=== PATIENT | female | born 1930 | race Caucasian/White ===

== ENCOUNTER 2017-02-17 14:59 | Inpatient (IN) | payer MEDICARE, OTHER ==
[~2017-02-17 14:59] MED LIST: EPINEPHrine 1 MG/10 ML Abboject SYRINGE ONE; Sodium Bicarb 50 MEQ/50 ML Abboject 8.4% SYRINGE ONE; Sodium Bicarbonate 2.4 MEQ/5 ML ONE
[2017-02-17 15:30] LABS: Oxyhemoglobin 97.6 % (94.0-97.0); Sodium 135 mmol/L (135-148)
[2017-02-17 15:31] LABS: Mechanical Tidal Volume 450 ml; Mode SIMV/PSV; PIP 15 cmH2O; Pressure Support 10 cmH2O; Spontaneous Rate 3 min; Vent YES
[2017-02-17] MEDS ORDERED: Aspirin 300 MG Suppository ONE (15:32)
[2017-02-17 16:23] LABS: Bilirubin Negative (Negative); Blood, Urine Negative (Negative); Glucose, Urine (Dipstick) Negative (Negative); Ketone, Urine Negative (Negative); Nitrite Negative (Negative); Protein, Urine (Dipstick) Negative (Neg-Trace); Urobilinogen 0.2 mg/dL (0.2-1.0)
[2017-02-17] MEDS ORDERED: Sedation Protocol FS ONE (17:04)
[2017-02-17] MEDS ORDERED: Lorazepam 2 MG/ML VIAL SLOW IVP PRN ×2 (17:04→17:07)
[2017-02-17] MEDS ORDERED: DISCONTINUE PREVIOUS NARCOTIC PAIN MEDICATIONS AND BENZODIAZEPINES FS SCH ×2 (17:04→17:07)
[2017-02-17] MEDS ORDERED: Fentanyl 20 MCG/ML 250 ML IVPB SCH ×2 (17:04→17:07)
[2017-02-17] MEDS ORDERED: Propofol 1,000 MG/100 ML VIAL IV PRN (17:07)
[2017-02-17] MEDS ORDERED: Morphine 4 MG/ML VIAL SLOW IVP PRN (17:08)
[2017-02-17] MEDS ORDERED: FLU VACC TS2017-18 (>65YR) 0.5 ML SYRINGE IM ONE (17:15)
--- NOTE | 2017-02-17 17:45 | RAD ---
ABDOMEN ONE VIEW 02/17/17 HISTORY: Nasogastric tube placement. FINDINGS: The visualized bowel gas pattern is nonspecific. Nasogastric tube descends to the stomach. There are degenerative changes of the hips and lumbar spine. Calcifications apparent within the arterial struct ures. IMPRESSION: Nasogastric tube is in good radiographic position. POS: [facility]
[2017-02-17] MEDS: Sodium Chloride 0.9% 1,000 ML IV SCH (17:48)
[2017-02-17 17:56] LABS: #Lymphocytes 0.8 thou/uL (1.20-3.40); #Monocytes 0.4 thou/uL (0.11-0.59); %Basophils 0.3 % (0.0-1.0); %Eosinophils 0.5 % (0.0-10.0); %Monocytes 5.2 % (0.0-10.0); Hematocrit 30.4 % (36.0-47.0); Mean Platelet Volume 6.7 fL (7.4-10.4); Red Blood Cell (RBC) Count 3.33 mill/uL (4.20-5.40); White Blood Cell (WBC) Count 8.3 thou/uL (4.8-10.8)
[2017-02-17 18:19] LABS: Anion Gap 15 mmol/L (10-20); BUN (Urea Nitrogen) 16 mg/dL (9.8-20.1); Calc. Creatinine Clearance 40 mL/min (70-130); Calcium 8.9 mg/dL (7.8-10.44); Carbon Dioxide 29 mmol/L (23-31); Chloride 94 mmol/L (98-107); Estimated GFR-MDRD 74
[2017-02-17 18:25] LABS: Troponin I 0.014 ng/mL (< 0.028)
[2017-02-17] MEDS: Propofol 1,000 MG/100 ML VIAL IV PRN (18:41)
[2017-02-17] MEDS: levETIRAcetam In NaCl (Iso-Os) 1,000 MG in Premix Bag 1 BAG IVPB SCH ×2 (19:59)
--- NOTE | 2017-02-17 21:30 | HP ---
DATE OF ADMISSION: 02/17/2017 ATTENDING: Cheryl Ramirez D.O. RESIDENT: Wesley Escobar M.D. Dr. Escobar's history and physical reviewed and case discussed. Pertinent portions of the history and physical repeated by myself. I agree with the assessment and plan with the following addendum: Ms. Lynne is an 87-year-old female with a past medical history of coronary artery disease, status post CABG; hypertension; hypothyroidism; hyperlipidemia; GERD; type 2 diabetes; and senile dem entia with physical deconditioning. She was found to be having [facility] and was sent to the ER in [place]. At the ER in [place], the patient's daughter revoked th at her DNR and she was intubated and transferred here. She no longer has seizure activity. She has been loaded with Keppra. She is stable on the ventilator at this time. Dr. Rodriguez has been consult ed. He has not been able to determine the etiology of her seizure activity. She was noted to be hyp othermic in the ER with a temperature of 93. Her current temperature is 97.8 after being externally warm to the Jarrell Hugger. Her CT scan of her head was not performed given her initially unstable stat us. We will send for CT of the head with concern for a stroke. In addition, there is concern for po tential hypoxia leading to seizure activity versus an underlying metabolic disorder. Lab is currentl y pending including CBC, CMP, and cardiac enzymes. In the meantime, she has been admitted to the ICU for close observation.
[2017-02-17 21:35] LABS: Troponin I 0.012 ng/mL (< 0.028)
[2017-02-17] MEDS ORDERED: EPINEPHrine 1 MG/10 ML Abboject SYRINGE ONE (22:10)
[2017-02-17] MEDS ORDERED: Atropine Sulfate 1 mg/10 ml Syringe ONE (22:10)
[2017-02-17] MEDS ORDERED: Sodium Bicarb 50 MEQ/50 ML Abboject 8.4% SYRINGE ONE (22:10)
--- NOTE | 2017-02-17 23:52 | HP-2 ---
DATE OF ADMISSION: 02/17/2017 CODE STATUS: DNR. PRIMARY CARE PHYSICIAN: Denice worthington. ATTENDING: Cheryl Ramirez D.O. RESIDENT: Wesley Escobar M.D., PGY-1 CHIEF COMPLAINT: Altered mental status and seizure. HISTORY OF PRESENT ILLNESS: This is an 87-year-old female that was transferred here from [place] intubated and sedated. Per their records, she came in with altered mental status from [facility]. There, she started to have some seizure activity, at this time they sedated her and at marylu t time, she did not maintain an airway and remains intubated at this time, unable to obtain anymore H PI the patient is sedated. In the ER, she was given Versed, Dilantin, rocuronium, and fentanyl. PAST MEDICAL HISTORY: This is obtained from previous HPI. Atrial fibrillation, diabetes, GERD, hype rtension, hyperlipidemia, coronary artery disease with CABG, hypothyroid, senile dementia, diabetes m ellitus type 2, history of TIA. PAST SURGICAL HISTORY: CABG, perforated ulcer and hysterectomy. ALLERGIES: LACTOSE intolerant. MEDICATIONS: Again obtained from previous HPI from earlier this year, Eliquis 2.5 mg p.o. b.i.d., vi tamin C 500 mg p.o. daily, Lipitor 10 mg p.o. daily, Coreg 25 mg p.o. b.i.d., Vitamin D3 1000 units p .o. daily, digoxin 0.125 mg daily, Lasix 20 mg p.o. b.i.d., Imdur 30 mg p.o. daily, lisinopril 5 mg p .o. daily, multivitamin 1 tablet p.o. daily, nitroglycerin 0.4 mg sublingual p.r.n. for chest pain, o meprazole 40 mg p.o. daily, valsartan 320 mg p.o. daily, Catapres 0.1 mg p.o. daily, Mucinex 700 mg t wice daily, metformin 500 mg p.o. b.i.d., and risperidone 0.5 mg at bedtime. FAMILY HISTORY: Insignificant. SOCIAL HISTORY: No smoking, no alcohol, no drugs. REVIEW OF SYSTEMS: Unable to obtain as the patient is currently sedated and intubated. PHYSICAL EXAMINATION: VITAL SIGNS: Blood pressure is 180/76, pulse 66, respirations 18, temperature 93.7, pulse ox 100% on assist-control ventilator. Current weight is 46 kilograms. GENERAL: She is not alert, not oriented, not appropriately interactive. HEENT: Her eyes are pinpoint and fixed. ENT: Oropharynx has a little dry. NECK: Supple, no lymphadenopathy, no thyromegaly. CARDIOVASCULAR: Regular rate and rhythm. No murmur, no gallops. Radial pulses, pedal pulses unable to palpate at this time. RESPIRATORY: She has assist-control intubated breathing rate and effort. Lungs clear to auscultatio n bilaterally. SKIN: Very cool to touch. Again, she is pale. ABDOMEN: Soft. Bowel sounds heard in all 4 quadrants. MUSCULOSKELETAL: Structure within normal limits. NEUROLOGIC: Unable to assess for neurologic deficits as she is intubated and sedated. PSYCHIATRIC: Appropriate. LABORATORY DATA: White blood cell count 6.52, hemoglobin 9.7, MCV 87.8, hematocrit 28.7, platelets 2 33. Sodium 138, potassium 4.3, chloride 99, carbon dioxide 28, BUN is 15.5, creatinine is 0.7, gluco se is 98, calcium is 6.54, total protein is 7.2, albumin is 3.8, total bilirubin is 0.8, alkaline amanda sphatase is 59, AST is 19, ALT is 12. ABG: pH is 7.57, CO2 of 29.4, O2 is 138.1, bicarbonate 26.4. Drug screen is negative. CK is 44, CK-MB is 13. Troponin is 0.014. UA is negative. IMAGING: CT head at outside hospital was negative. She also got an abdomen x-ray which shows nasoga stric tube is in good radiographic position. ASSESSMENT AND PLAN: 1. Altered mental status with seizure. She is intubated. We will wean off sedation and assess abil ity to extubate tomorrow. We will continue Keppra b.i.d. We will get an MRI of the head. 2. Possible cerebrovascular accident. We will get an MRI of the head and assess from there, current ly sedated and intubated. 3. Chronic anemia. We will follow with a daily CBC. 4. Indeterminate tropes. We will trend cardiac profile x3. 5. History of hypertension. We will do her med rec and may restart home medications. 6. Hyperlipidemia. We will do her med rec and start home medications. 7. Gastroesophageal reflux disease. We will put her on omeprazole for prophylaxis. 8. History of atrial fibrillation. She will be on telemetry monitoring and continue to monitor and treat as needed. 9. Hypothyroid. We will need to med rec and get her hypothyroid dose and treat as needed. The big thing also with her on the plan is she was a DNR, but daughter wanted to intubate her as she thought maybe she just only had a UTI and she said she wanted to wait and have the son come as well a nd come and talk and probably discuss extubating and discuss goals of care tomorrow, so for tonight, we will keep her on intubation. We will keep her sedated for now and likely try sedation, wean off s edation and try to extubate tomorrow when family is present.
[2017-02-18 00:22] LABS: Troponin I 0.022 ng/mL (< 0.028)
[2017-02-18] MEDS: Propofol 1,000 MG/100 ML VIAL IV PRN (03:15)
[2017-02-18 04:42] LABS: #Lymphocytes 0.8 thou/uL (1.20-3.40); #Monocytes 0.9 thou/uL (0.11-0.59); #Neutrophils 5.5 thou/uL (1.40-6.50); %Basophils 0.2 % (0.0-1.0); %Eosinophils 0.4 % (0.0-10.0); %Lymphocytes 11.1 % (21.0-51.0); %Monocytes 12.3 % (0.0-10.0); Hematocrit 27.1 % (36.0-47.0); Mean Platelet Volume 7.1 fL (7.4-10.4); White Blood Cell (WBC) Count 7.2 thou/uL (4.8-10.8)
[2017-02-18 04:48] LABS: Anion Gap 13 mmol/L (10-20); BUN (Urea Nitrogen) 13 mg/dL (9.8-20.1); Calc. Creatinine Clearance 41 mL/min (70-130); Calcium 7.9 mg/dL (7.8-10.44); Carbon Dioxide 28 mmol/L (23-31); Chloride 96 mmol/L (98-107); Estimated GFR-MDRD 79
[2017-02-18] MEDS: Sodium Chloride 0.9% 1,000 ML IV SCH ×2 (05:10→16:32)
[2017-02-18] MEDS ORDERED: Potassium Chloride 40 MEQ in Sodium Chloride 0.9% 250 ML 250 ML IVPB SCH (05:30)
[2017-02-18] MEDS: levETIRAcetam In NaCl (Iso-Os) 1,000 MG in Premix Bag 1 BAG IVPB SCH ×4 (08:19→19:54)
--- NOTE | 2017-02-18 10:21 | CON ---
DATE OF CONSULTATION: 02/18/2017 SERVICE: Pulmonary Medicine. REASON FOR CONSULTATION: Respiratory failure. HISTORY OF PRESENT ILLNESS: The patient is an 87-year-old white female. She had some altered mentat ion with possible neurologic impairment. Either way, she ended up having a seizure. This thing did not stop. She was intubated on arriving in the emergency department. I cannot get any additional el ements of the history from her. It is my understanding that prior to this event, she may have been i n her usual state of health. PAST MEDICAL HISTORY: 1. Atrial fibrillation. 2. Type 2 diabetes mellitus. 3. Hypertension. 4. Dyslipidemia. 5. Gastroesophageal reflux disease. 6. Coronary artery disease. 7. Hypothyroidism. 8. Dementia, advanced. 9. Type 2 diabetes mellitus. 10. History of stroke. PAST SURGICAL HISTORY: 1. Coronary artery bypass graft. 2. Hysterectomy. ALLERGIES: LACTOSE. MEDICATIONS: List of her inpatient medications was reviewed. Multiple updates were made at this critical access hospital. FAMILY HISTORY: Noncontributory. SOCIAL HISTORY: Negative for tobacco, alcohol or illicit drugs. REVIEW OF SYSTEMS: Cannot be obtained as the patient is currently intubated and sedated. PHYSICAL EXAMINATION: VITAL SIGNS: Afebrile, pulse 62, blood pressure 154/91, respirations 64, saturation 99% on 21% FIO2 and PEEP of 5. HEENT: Normocephalic, atraumatic. Sclerae are white, conjunctivae pink. Oral mucosa is moist witho ut lesions. Endotracheal tube is in good position. LUNGS: Excellent air entry. There is no prolonged expiratory phase, wheezing, rhonchi or crackles. HEART: Normal rate, regular. ABDOMEN: Soft, nontender, and nondistended. Bowel sounds positive. MUSCULOSKELETAL: No cyanosis or clubbing. No pitting in the bilateral lower extremities. NEUROLOGIC: Grossly nonfocal. She has been witnessed to move all 4 extremities. LABORATORY DATA: WBC 7.2, hemoglobin 9.3, platelets 241,000. A pH 7.57, pCO2 of 29, pO2 138. Potas sium 2.7, phosphorus is normal at 3.0. Magnesium is below the assay limit of normal. Cardiac enzyme s are negative x2. Urinalysis is unremarkable. Urine culture is growing some gram negative rods. IMAGIN. Abdominal x-ray demonstrates NG tube in good position. 2. CT of the head demonstrates no acute intracranial process. ASSESSMENT: 1. Seizure, possible. 2. Metabolic encephalopathy. 3. Cerebrovascular accident, possible. 4. Dementia, advanced. PLAN: We will give the patient a spontaneous breathing trial after a long sedation holiday. If she meets criteria, extubation will be considered. Supportive care will be continued. She is going down for an MRI at some point today. This will help us to definitively understand whether or not she had an acute neurologic injury. Pulmonary or Critical Care will continue to follow up for the time anu swan, but if her mentation allows, she should tolerate extubation quite well. CRITICAL CARE TIME: Thirty minutes.
--- NOTE | 2017-02-18 10:40 | PDOC.FM ---
- Subjective Subjective: Patient sedated on Propofol this morning. Daughter and son are en route today and we will discuss prognosis and goals of care - Objective MAR Reviewed: Yes Vital Signs & Weight: Vital Signs (12 hours) Temp Pulse Resp BP Pulse Ox 02/18/17 10:00 24 H 02/18/17 08:34 68 02/18/17 08:00 14 02/18/17 07:28 98.5 F 62 21 H 97 02/18/17 07:02 62 156/52 H 02/18/17 07:00 98.4 F 02/18/17 06:00 17 02/18/17 04:26 65 156/58 H 02/18/17 04:00 20 02/18/17 03:00 98.1 F 02/18/17 02:00 20 02/18/17 01:57 74 02/18/17 00:00 20 02/17/17 23:00 98.4 F 02/17/17 22:50 71 134/42 L Weight Weight 45.4 kg Most Recent Monitor Data Heart Rate from ECG 68 NIBP 155/53 NIBP BP-Mean 70 Respiration from ECG 24 SpO2 100 I&O: 02/17/17 02/18/17 02/19/17 06:59 06:59 06:59 Intake Total 1037 200 Output Total 1807 115 Balance -770 85 Result Diagrams: 02/18/17 04:14 02/18/17 04:14 Phys Exam - Physical Examination sedated and intubated Neck: no JVD irregularly irregular Gastrointestinal: soft, no distention Skin: no rash Dx/Plan (1) Respiratory failure Code(s): J96.90 - RESPIRATORY FAILURE, UNSP, UNSP W HYPOXIA OR HYPERCAPNIA Status: Acute Qualifiers: Chronicity: acute Respiratory failure complication: hypoxia Qualified Code(s): J96.01 - Acute respiratory failure with hypoxia Plan: Intubated s/p seizure. Will attempt spontaneous breathing trial today after sedation holiday. Possible extubation if patient able to tolerate. Pulm/ Critical Care managing (2) CVA (cerebral vascular accident) Code(s): I63.9 - CEREBRAL INFARCTION, UNSPECIFIED Status: Suspected Qualifiers: CVA mechanism: unspecified Qualified Code(s): I63.9 - Cerebral infarction, unspecified Plan: CT at [facility] was negative. MRI brain ordered for today for further evaluation. (3) Seizure as late effect of cerebrovascular accident (CVA) Code(s): I69.398 - OTHER SEQUELAE OF CEREBRAL INFARCTION; R56.9 - UNSPECIFIED CONVULSIONS Status: Suspected Plan: No prior history of seizure DO. Patient loaded with Dilantin at outside facility and now on Keppra (4) Hypomagnesemia Code(s): E83.42 - HYPOMAGNESEMIA Status: Acute Plan: 0.7 this morning. Well replete with additional 4G this AM (5) Dementia Code(s): F03.90 - UNSPECIFIED DEMENTIA WITHOUT BEHAVIORAL DISTURBANCE Status: Chronic Plan: Patient had a DNR order but was intubated with anticipation of correctable pathology. Palliative will speak with family regarding goals of care (6) Afib Code(s): I48.91 - UNSPECIFIED ATRIAL FIBRILLATION Status: Acute Qualifiers: Atrial fibrillation type: persistent Qualified Code(s): I48.1 - Persistent atrial fibrillation Plan: restart home meds - Plan Plan: Plan: -Palliative to coordinate family meeting for goals of care -MRI today -sedation holiday with spontaneous breathing trial
[2017-02-18] MEDS ORDERED: Magnesium Sulfate 4 GM in Sodium Chloride 0.9% 250 ML 250 ML IVPB SCH (11:00)
--- NOTE | 2017-02-18 11:07 | ADD-PRG ---
DATE OF SERVICE: 02/18/2017 This is an addendum to the note of Dr. Milton Lynne. Ms. Estefania Lynne is an 87-year-old white female who was transferred from [place], [place]. Evidentl y, she presented to their emergency room with altered mental status and developed seizure activity. Even though she was DNR there was concern for her ability to protect her airway and she was subsequen tly intubated and transferred to our facility. She is currently still on the ventilator and is off s edation. She seems to have no meaningful interaction with her environment. However, we will obtain an MRI later today to determine whether a stroke has occurred. We will then discuss with the family over the coming 48 hours their desires for her long-term care.
--- NOTE | 2017-02-18 11:56 | MRI ---
MRI OF BRAIN WITH AND WITHOUT CONTRAST: INDICATION: Stroke, seizures. FINDINGS: There is parenchymal volume loss with compensatory dilatation of the ventricular system. There is no acute territorial infarction. There is moderate chronic microvascular ischemic disease of the cereb ral white matter. There is a chronic lacunar infarction of the right cerebral peduncle. There are a lso scattered chronic lacunar infarctions involving each cerebellar hemisphere. There is a small non specific focus of susceptibility involving the left frontal lobe. No enhancing intraaxial mass. IMPRESSION: 1. No acute territorial infarction. 2. Chronic ischemic disease. POS: [facility]
[2017-02-18] MEDS: cloNIDine 0.1 MG TAB PO PRN (13:16)
[2017-02-18] MEDS: metFORMIN 500 MG TAB PO SCH (16:52)
[2017-02-18] MEDS ORDERED: Pancrelipase DR 12000 1 CAP PER TUBE PRN (18:25)
[2017-02-18] MEDS ORDERED: Sodium Bicarbonate Tab 325 MG TAB PER TUBE PRN (18:25)
[2017-02-18] MEDS: Apixaban 5 MG TAB PO SCH (19:53)
[2017-02-18] MEDS: Carvedilol 25 MG TAB PO SCH (19:54)
[2017-02-19] MEDS: cefTRIAXone\\ROCEPHIN 1 GM in Syringe 10 ML SLOW IVP SCH (01:51)
[2017-02-19 05:52] LABS: #Lymphocytes 0.6 thou/uL (1.20-3.40); #Monocytes 0.9 thou/uL (0.11-0.59); %Basophils 0.1 % (0.0-1.0); %Eosinophils 0.4 % (0.0-10.0); %Lymphocytes 7.2 % (21.0-51.0); %Monocytes 10.4 % (0.0-10.0); Hematocrit 26.5 % (36.0-47.0); Mean Platelet Volume 7.3 fL (7.4-10.4); Red Blood Cell (RBC) Count 2.88 mill/uL (4.20-5.40); White Blood Cell (WBC) Count 8.5 thou/uL (4.8-10.8)
[2017-02-19 06:10] LABS: Anion Gap 11 mmol/L (10-20); BUN (Urea Nitrogen) 12 mg/dL (9.8-20.1); Calc. Creatinine Clearance 42 mL/min (70-130); Calcium 7.5 mg/dL (7.8-10.44); Carbon Dioxide 24 mmol/L (23-31); Chloride 107 mmol/L (98-107); Estimated GFR-MDRD 82; Magnesium 2.3 mg/dL (1.6-2.6)
--- NOTE | 2017-02-19 06:28 | PDOC.FM ---
- Subjective Subjective: Patient did well overnight. No sedation since yesterday and nursing reports she is awake and alert and making purposeful movements. Not able to follow commands though. Adequate UOP at 40cc/hr. Urine cx w/ Ecoli and started on Rocephin overnight. VSS stable and afebrile. - Objective MAR Reviewed: Yes Vital Signs & Weight: Vital Signs (12 hours) Temp Pulse Resp BP Pulse Ox 02/19/17 06:00 22 H 02/19/17 04:20 62 02/19/17 04:00 19 02/19/17 03:00 97.8 F 02/19/17 02:00 20 02/19/17 00:00 21 H 02/18/17 23:00 98.4 F 02/18/17 22:16 64 147/56 H 02/18/17 22:00 23 H 02/18/17 20:00 21 H 02/18/17 19:41 98.9 F 59 L 21 H 100 02/18/17 19:01 94 02/18/17 19:00 98.9 F Weight Admit Weight 47.7 kg Weight 45.4 kg Most Recent Monitor Data Heart Rate from ECG 68 NIBP 146/51 NIBP BP-Mean 93 Respiration from ECG 19 SpO2 97 I&O: 02/17/17 02/18/17 02/19/17 06:59 06:59 06:59 Intake Total 1037 2834 Output Total 1807 985 Balance -770 1849 Result Diagrams: 02/19/17 05:14 02/19/17 05:14 <Kavitha Sanchez - Last Filed: 02/19/17 07:44> - Objective Vital Signs & Weight: Vital Signs (12 hours) Temp Pulse Resp BP Pulse Ox 02/19/17 10:38 77 19 99 02/19/17 10:10 69 159/58 H 02/19/17 09:37 74 02/19/17 08:46 76 153/55 H 02/19/17 06:45 66 146/51 H 02/19/17 06:00 22 H 02/19/17 04:20 62 02/19/17 04:00 19 02/19/17 03:00 97.8 F 02/19/17 02:00 20 02/19/17 00:00 21 H Weight Admit Weight 47.7 kg Weight 45.4 kg Most Recent Monitor Data Heart Rate from ECG 68 NIBP 146/51 NIBP BP-Mean 93 Respiration from ECG 19 SpO2 97 I&O: 02/18/17 02/19/17 02/20/17 06:59 06:59 06:59 Intake Total 1037 2834 Output Total 1807 985 Balance -770 4149 Result Diagrams: 02/19/17 05:14 02/19/17 05:14 <Elan Moya - Last Filed: 02/19/17 11:26> Phys Exam - Physical Examination Constitutional: NAD ETT in place HEENT: PERRLA, moist MMs Respiratory: no wheezing, clear to auscultation bilateral Cardiovascular: irregular Gastrointestinal: soft, non-tender, positive bowel sounds Musculoskeletal: no edema, pulses present Skin: no rash, normal turgor <Kavitha Sanchez - Last Filed: 02/19/17 07:44> Dx/Plan (1) Respiratory failure Code(s): J96.90 - RESPIRATORY FAILURE, UNSP, UNSP W HYPOXIA OR HYPERCAPNIA Status: Acute QualifierTitle: Chronicity: acute Respiratory failure complication: hypoxia Qualified Code(s): J96.01 - Acute respiratory failure with hypoxia Plan: Likely 2/2 seizure. Suspected CVA, however MRI negative and only showing chronic ischemic changes. Sedation d/c'ed yesterday. Obtain ABG this AM and likely spontaneous breathing trial today. Pulm following. Appreciate recs. (2) Seizure Code(s): R56.9 - UNSPECIFIED CONVULSIONS Status: Acute Plan: No hx of prior seizure DO. Suspect possible seizure and patient loaded with Dilantin at OSH. Currently on Keppra and has had no seizure activity. Monitor. Consider consulting neuro. (3) E. coli urinary tract infection Code(s): N39.0 - URINARY TRACT INFECTION, SITE NOT SPECIFIED; B96.20 - UNSP ESCHERICHIA COLI THE CAUSE OF DISEASES CLASSD ELSWHR Status: Acute Plan: Cont Rocephin (02/19). (4) Afib Code(s): I48.91 - UNSPECIFIED ATRIAL FIBRILLATION Status: Acute QualifierTitle: Atrial fibrillation type: persistent Qualified Code(s): I48.1 - Persistent atrial fibrillation Plan: Chronic Afib. Stable. Cont home digoxin, coreg and eliquis. (5) Dementia Code(s): F03.90 - UNSPECIFIED DEMENTIA WITHOUT BEHAVIORAL DISTURBANCE Status: Chronic Plan: Patient with baseline dementia and had a DNR order in place, but at OSH daughter revoked it with anticipation of correctable etiology. Palliative has been consulted to discuss goals of care. Spoke with daughter yesterday and patient is now chemical code. (6) T2DM (type 2 diabetes mellitus) Status: Acute Plan: Cont home metformin. (7) HTN (hypertension) Code(s): I10 - ESSENTIAL (PRIMARY) HYPERTENSION Status: Chronic QualifierTitle: Hypertension type: essential hypertension Qualified Code( s): I10 - Essential (primary) hypertension Plan: Cont home valsartan and clonidine prn. (8) GERD (gastroesophageal reflux disease) Code(s): K21.9 - GASTRO-ESOPHAGEAL REFLUX DISEASE WITHOUT ESOPHAGITIS Status: Acute Plan: Cont protonix. <Kavitha Sanchez - Last Filed: 02/19/17 07:44> Attending Addendum - Attending Addendum I personally evaluated the patient and discussed the management with Dr. Sanchez. I agree with the History, Examination, Assessment and Plan documented above with any addition or exceptions noted below. Patient doing somewhat better today. She is having spontaneous movement and is taking spontaneous breaths. Pulm plans for breathing trial today versus tomorrow. Still unsure if neuro event was related to encephalopathy or seizure. MRI showed no infarct. She has been diagnosed with E. coli UTI for which we are starting IV Rocephin therapy. We will replete Potassium today. Await further recs from Pulm regarding vent mgmt. <Elan Moya - Last Filed: 02/19/17 11:26>
[2017-02-19] MEDS: metFORMIN 500 MG TAB PO SCH ×2 (09:37→17:48)
[2017-02-19] MEDS: Valsartan 80 MG TAB PO SCH (09:37)
[2017-02-19] MEDS: Digoxin 0.125 MG TAB PO SCH (09:37)
[2017-02-19] MEDS: Apixaban 5 MG TAB PO SCH ×2 (09:38→19:46)
[2017-02-19] MEDS: Carvedilol 25 MG TAB PO SCH ×2 (09:38→19:47)
[2017-02-19] MEDS: Multivit, Therapeutic 1 TAB PO SCH (09:38)
[2017-02-19] MEDS: levETIRAcetam In NaCl (Iso-Os) 1,000 MG in Premix Bag 1 BAG IVPB SCH ×4 (09:39→19:47)
[2017-02-19] MEDS: Atorvastatin Calcium 10 MG TAB PO SCH (09:39)
[2017-02-19] MEDS: Sodium Chloride 0.9% 1,000 ML IV SCH (09:40)
[2017-02-19] MEDS ORDERED: DC Sedation Protocol FS ONE (10:34)
[2017-02-19] MEDS ORDERED: Potassium Chloride 40 MEQ in Premix Bag 1 BAG IVPB SCH (11:15)
--- NOTE | 2017-02-19 11:59 | RAD ---
PORTABLE CHEST: Date: 02/19/17 COMPARISON: 04/05/16 study. HISTORY: Respiratory distress. FINDINGS: Heart size is enlarged. Endotracheal and NG tubes are in satisfactory position. Right subclavian line is seen with catheter tip overlying the superior vena cava. Increased density in the right base sugg ests some effusion with atelectasis. IMPRESSION: Increased density in the right base, probably a combination of effusion with atelectasis versus minim al infiltrate. POS: [facility]
--- NOTE | 2017-02-19 17:42 | PRG ---
DATE OF SERVICE: 02/19/2017 SUBJECTIVE: This morning, patient is more awake. She was given Ativan last night for agitation. PHYSICAL EXAMINATION: VITAL SIGNS: Blood pressure 115/55, sats are 99%, respirations 18. I's and O's are 2834 and 3895 ou t. CHEST: Decreased breath sounds without any wheezing. CARDIAC: Normal S1 and S2. No gallops. ABDOMEN: Soft. No masses. LABORATORY DATA: White count 8,000, hemoglobin and hematocrit 8 and 26, platelet count normal. Elec trolytes are normal. Urine is showing E. coli, sensitive to the present antibiotic. IMPRESSION: 1. Urinary tract infection. 2. Seizure. 3. Advanced age. 4. Dementia. 5. Respiratory failure. PLAN: Discontinue all sedation, hopefully we will try and wean and extubate. Continue antibiotics, seizure medications, and supportive care. We will follow. One-half hour critical care time.
[2017-02-20] MEDS: cefTRIAXone\\ROCEPHIN 1 GM in Syringe 10 ML SLOW IVP SCH (02:00)
[2017-02-20] MEDS: Sodium Chloride 0.9% 1,000 ML IV SCH (02:53)
[2017-02-20 04:59] LABS: Anion Gap 12 mmol/L (10-20); BUN (Urea Nitrogen) 16 mg/dL (9.8-20.1); Calc. Creatinine Clearance 44 mL/min (70-130); Carbon Dioxide 21 mmol/L (23-31); Chloride 111 mmol/L (98-107); Estimated GFR-MDRD 88
[2017-02-20 05:51] LABS: #Lymphocytes 0.7 thou/uL (1.20-3.40); #Monocytes 1.2 thou/uL (0.11-0.59); #Neutrophils 11.1 thou/uL (1.40-6.50); %Basophils 0.1 % (0.0-1.0); %Eosinophils 0.1 % (0.0-10.0); %Lymphocytes 5.3 % (21.0-51.0); %Monocytes 9.3 % (0.0-10.0); Hematocrit 30.5 % (36.0-47.0); Mean Platelet Volume 7.9 fL (7.4-10.4); Red Blood Cell (RBC) Count 3.23 mill/uL (4.20-5.40)
[2017-02-20] MEDS: cloNIDine 0.1 MG TAB PO PRN (06:33)
--- NOTE | 2017-02-20 07:23 | PDOC.FM ---
- Subjective Subjective: Patient extubated yesterday and doing well on O2 supplem via NC. Patient is awake, alert and conversant this AM. Moves all extremities and follows commands. Per nursing, she did have episodes of Afib w/ RVR as well as Vtach. Patient asymptomatic at that time and would quickly resolve to normal HR. BPs have also been elevated, but not able to give PO BP meds due to NPO status. This AM, pt able to tolerate PO pudding without any difficulty. Afebrile overnight. - Objective MAR Reviewed: Yes Vital Signs & Weight: Vital Signs (12 hours) Temp Pulse Resp BP Pulse Ox 02/20/17 06:33 140/125 H 02/20/17 04:00 98.9 F 02/20/17 00:00 99.0 F 02/19/17 20:52 96 02/19/17 20:00 99.2 F 56 L 18 95 Weight Admit Weight 47.7 kg Weight 45.4 kg Most Recent Monitor Data Heart Rate from ECG 74 NIBP 178/69 NIBP BP-Mean 93 Respiration from ECG 32 SpO2 98 I&O: 02/19/17 02/20/17 02/21/17 06:59 06:59 06:59 Intake Total 2834 1353 Output Total 985 1007 Balance 1849 346 Result Diagrams: 02/20/17 04:19 02/20/17 04:19 <Kavitha Sanchez - Last Filed: 02/20/17 07:21> - Objective Vital Signs & Weight: Vital Signs (12 hours) Temp Pulse BP 02/20/17 10:28 56 L 02/20/17 08:00 98.0 F 02/20/17 06:33 140/125 H 02/20/17 04:00 98.9 F 02/20/17 00:00 99.0 F Weight Admit Weight 47.7 kg Weight 45.4 kg Most Recent Monitor Data Heart Rate from ECG 67 NIBP 147/68 NIBP BP-Mean 81 Respiration from ECG 22 SpO2 96 I&O: 02/19/17 02/20/17 02/21/17 06:59 06:59 06:59 Intake Total 2834 1353 1209 Output Total 985 1007 155 Balance 9263 829 3093 Result Diagrams: 02/20/17 04:19 02/20/17 04:19 <Elan Moya - Last Filed: 02/20/17 10:54> Phys Exam - Physical Examination Constitutional: NAD HEENT: PERRLA, moist MMs Respiratory: no wheezing, clear to auscultation bilateral Cardiovascular: no significant murmur irregularly irregular Gastrointestinal: soft, non-tender, no distention, positive bowel sounds Musculoskeletal: no edema, pulses present Neurological: non-focal, moves all 4 limbs Psychiatric: normal affect <Kavitha Sanchez - Last Filed: 02/20/17 07:21> Dx/Plan (1) Respiratory failure Code(s): J96.90 - RESPIRATORY FAILURE, UNSP, UNSP W HYPOXIA OR HYPERCAPNIA Status: Resolved QualifierTitle: Chronicity: acute Respiratory failure complication: hypoxia Qualified Code(s): J96.01 - Acute respiratory failure with hypoxia Plan: Likely 2/2 seizure. Suspected CVA, however MRI negative and only showing chronic ischemic changes. Extubated yesterday and doing well on O2 supplem via NC. Likely transfer to tele today. Dr. Rosenberg of Pulmonology following. Appreciate recs. (2) Seizure Code(s): R56.9 - UNSPECIFIED CONVULSIONS Status: Acute Plan: No hx of prior seizure DO. Suspect possible seizure and patient loaded with Dilantin at OSH. Currently on Keppra and has had no seizure activity. Transition to PO Keppra soon as pt tolerates PO intake. (3) E. coli urinary tract infection Code(s): N39.0 - URINARY TRACT INFECTION, SITE NOT SPECIFIED; B96.20 - UNSP ESCHERICHIA COLI THE CAUSE OF DISEASES CLASSD ELSWHR Status: Acute Plan: Urine cx growing E. coli sensitive to Rocephin. Afebrile overnight, but WBC inc to 13 this AM. CXR done on 02/19 showed some atelectasis, no acute process. Cont Rocephin (02/19) and monitor. (4) Afib Code(s): I48.91 - UNSPECIFIED ATRIAL FIBRILLATION Status: Acute QualifierTitle: Atrial fibrillation type: chronic Qualified Code(s): I48.2 - Chronic atrial fibrillation Plan: Chronic Afib. Patient with intermittent Afib w/ RVR overnight with some episodes of Vtach. Currently rate controlled. Obtain EKG. Cont home digoxin, coreg and eliquis. Consider cards consult. (5) Dementia Code(s): F03.90 - UNSPECIFIED DEMENTIA WITHOUT BEHAVIORAL DISTURBANCE Status: Chronic Plan: Patient with baseline dementia and had a DNR order in place, but at OSH daughter revoked it with anticipation of correctable etiology. Palliative has been consulted to discuss goals of care. Spoke with daughter yesterday and patient is now chemical code. (6) HTN (hypertension) Code(s): I10 - ESSENTIAL (PRIMARY) HYPERTENSION Status: Chronic QualifierTitle: Hypertension type: essential hypertension Qualified Code( s): I10 - Essential (primary) hypertension Plan: Uncontrolled. Hopefully improvement as patien re-starts home valsartan, coreg and clonidine prn. Monitor. (7) T2DM (type 2 diabetes mellitus) Status: Acute Plan: Cont home metformin. (8) GERD (gastroesophageal reflux disease) Code(s): K21.9 - GASTRO-ESOPHAGEAL REFLUX DISEASE WITHOUT ESOPHAGITIS Status: Acute Plan: Cont protonix. <Kavitha Sanchez - Last Filed: 02/20/17 07:21> Attending Addendum - Attending Addendum I personally evaluated the patient and discussed the management with Dr. Sanchez. I agree with the History, Examination, Assessment and Plan documented above with any addition or exceptions noted below. Patient doing well after extubation yesterday. She is not safe to swallow per Speech. She has had no further evidence of seizure activity. Her neuro change could be due to the E. coli UTI that she is now being treated for. Will continue abx, continue speech, physical and occupational therapy. Will transfer out of CCU today. She is having some abnormal heart rhythms, mostly her chronic Afib, likely due to being off meds for the last few days. Will change her PO Digoxin to IV until she is able to tolerate PO. <Elan Moya - Last Filed: 02/20/17 10:54>
[2017-02-20] MEDS ORDERED: Dextrose 5% in Water 1,000 ML IV PRN (07:31)
[2017-02-20] MEDS ORDERED: HumaLOG 300 UNITS/3 ML VIAL SC PRN ×2 (07:31)
[2017-02-20] MEDS ORDERED: Dextrose 50% Abboject 50 ML SYRINGE SLOW IVP PRN (07:31)
[2017-02-20] MEDS: levETIRAcetam In NaCl (Iso-Os) 1,000 MG in Premix Bag 1 BAG IVPB SCH ×4 (08:35→21:42)
[2017-02-20] MEDS: Sodium Chloride 0.45% 1,000 ML IV SCH ×2 (08:35→21:46)
[2017-02-20] MEDS: Atorvastatin Calcium 10 MG TAB PO SCH (10:27)
[2017-02-20] MEDS: metFORMIN 500 MG TAB PO SCH ×2 (10:27→13:43)
[2017-02-20] MEDS: Carvedilol 25 MG TAB PO SCH ×2 (10:27→21:43)
[2017-02-20] MEDS: Apixaban 5 MG TAB PO SCH ×2 (10:27→21:43)
[2017-02-20] MEDS: Multivit, Therapeutic 1 TAB PO SCH (10:28)
[2017-02-20] MEDS: Valsartan 80 MG TAB PO SCH (10:28)
[2017-02-20] MEDS: Digoxin 0.125 MG TAB PO SCH (10:28)
[2017-02-20] MEDS ORDERED: Digoxin 0.5 MG/2 ML AMP SLOW IVP SCH (11:15)
--- NOTE | 2017-02-20 13:15 | PRG ---
DATE OF SERVICE: 02/20/2017 SUBJECTIVE: Ms. Estefania Lynne is extubated, in no distress. She failed the swallow test. OBJECTIVE: GENERAL: Appears to be in no distress. VITAL SIGNS: Sats are 94%, pulse 79 and blood pressure 118/60. CHEST: Bilateral rhonchi. CARDIAC: Normal S1 and S2. No gallops. ABDOMEN: Soft. No masses. IMPRESSION: Respiratory failure, status post extubation, small right pleural effusion, cerebrovascul ar accident, dementia, seizures, dysphagia and urinary tract infection. PLAN: Continue ceftriaxone. Continue neb treatments. Supportive care. PT. Probably needs a feeding device, PEG versus an NG tube.
[2017-02-21] MEDS: cefTRIAXone\\ROCEPHIN 1 GM in Syringe 10 ML SLOW IVP SCH (02:36)
[2017-02-21 04:58] LABS: #Eosinphils 0.1 thou/uL (0.0-0.7); #Lymphocytes 0.8 thou/uL (1.20-3.40); #Monocytes 1.1 thou/uL (0.11-0.59); #Neutrophils 8.9 thou/uL (1.40-6.50); %Eosinophils 0.8 % (0.0-10.0); %Monocytes 10.3 % (0.0-10.0); Hematocrit 28.1 % (36.0-47.0); Mean Platelet Volume 7.1 fL (7.4-10.4); Red Blood Cell (RBC) Count 2.97 mill/uL (4.20-5.40); White Blood Cell (WBC) Count 10.9 thou/uL (4.8-10.8)
[2017-02-21 05:09] LABS: Anion Gap 13 mmol/L (10-20); BUN (Urea Nitrogen) 17 mg/dL (9.8-20.1); Calc. Creatinine Clearance 47 mL/min (70-130); Calcium 8.4 mg/dL (7.8-10.44); Carbon Dioxide 21 mmol/L (23-31); Chloride 112 mmol/L (98-107); Estimated GFR-MDRD Greater than 90; Magnesium 2.1 mg/dL (1.6-2.6)
--- NOTE | 2017-02-21 07:58 | PDOC.FM ---
- Subjective Subjective: Pt seen at bedside in NAD. GUANACO overnight. Pt A&Ox2 and follows commands. No family at bedside. - Objective Vital Signs & Weight: Vital Signs (12 hours) Temp Pulse Resp Pulse Ox 02/21/17 07:43 99 02/21/17 07:41 96 24 H 98 02/21/17 04:00 98.8 F 02/21/17 00:00 98.7 F 02/20/17 23:48 93 26 H 02/20/17 20:00 97.9 F 72 24 H 97 Weight Admit Weight 47.7 kg Weight 45.4 kg Most Recent Monitor Data Heart Rate from ECG 120 NIBP 167/63 NIBP BP-Mean 122 Respiration from ECG 28 SpO2 98 I&O: 02/20/17 02/21/17 02/22/17 06:59 06:59 06:59 Intake Total 1353 2889 Output Total 1007 776 Balance 346 2113 Result Diagrams: 02/21/17 04:30 02/21/17 04:30 <Sharif Silva - Last Filed: 02/21/17 09:19> - Objective Vital Signs & Weight: Vital Signs (12 hours) Temp Pulse Resp Pulse Ox 02/21/17 09:44 96 02/21/17 08:00 98.0 F 96 23 H 94 L 02/21/17 07:43 99 02/21/17 07:41 96 24 H 98 02/21/17 04:00 98.8 F 02/21/17 00:00 98.7 F 02/20/17 23:48 93 26 H Weight Admit Weight 47.7 kg Weight 45.4 kg Most Recent Monitor Data Heart Rate from ECG 110 NIBP 162/93 NIBP BP-Mean 138 Respiration from ECG 25 SpO2 91 I&O: 02/20/17 02/21/17 02/22/17 06:59 06:59 06:59 Intake Total 1353 2889 0 Output Total 1007 776 0 Balance 346 2113 0 Result Diagrams: 02/21/17 04:30 02/21/17 04:30 <Leatha Duke - Last Filed: 02/21/17 11:23> Phys Exam - Physical Examination Constitutional: NAD HEENT: PERRLA Respiratory: no wheezing, clear to auscultation bilateral Cardiovascular: no significant murmur irregularly irregular Gastrointestinal: soft, non-tender Musculoskeletal: pulses present Neurological: non-focal, moves all 4 limbs Psychiatric: normal affect Deviation from normal: intermittently answers questions inappropriately <Sharif Silva - Last Filed: 02/21/17 09:19> Dx/Plan (1) Respiratory failure Code(s): J96.90 - RESPIRATORY FAILURE, UNSP, UNSP W HYPOXIA OR HYPERCAPNIA Status: Resolved QualifierTitle: Chronicity: acute Respiratory failure complication: hypoxia Qualified Code(s): J96.01 - Acute respiratory failure with hypoxia Plan: -pt initially presented as transfer from outside facility intubated 2/2 acute hypoxic respiratory failure following seizure -initially suspected CVA, however, MRI negative -pt has been stable since being extubated on 02/19 with plan to transfer to telemetry -pulm on board, recs greatly appreciated -currently on O2 supplementation via NC, continue to wean as tolerated -continue to monitor closely (2) Seizure Code(s): R56.9 - UNSPECIFIED CONVULSIONS Status: Acute Plan: -no hx of prior seizure d/o -pt has been kept on Keppra with no seizure activity -continue to monitor closely and transition to PO keppra when able to tolerate -speech recs greatly appreciated (3) E. coli urinary tract infection Code(s): N39.0 - URINARY TRACT INFECTION, SITE NOT SPECIFIED; B96.20 - UNSP ESCHERICHIA COLI THE CAUSE OF DISEASES CLASSD ELSWHR Status: Acute Plan: -urine cx shows E. coli sensitive to Rocephin, started 02/19 -afebrile for over 24 hrs -WBC downward trending to 10 this AM -CXR shows no acute process -continue with Rocephin (4) Afib Code(s): I48.91 - UNSPECIFIED ATRIAL FIBRILLATION Status: Acute QualifierTitle: Atrial fibrillation type: chronic Qualified Code(s): I48.2 - Chronic atrial fibrillation Plan: -chronic afib on home digoxin, coreg, and eliquis -currently rate controlled with intermittent Afib w/ RVR -pt has had PO medications held due to failing swallow study -continue IV digoxin for afib until able to transition back to PO (5) Dementia Code(s): F03.90 - UNSPECIFIED DEMENTIA WITHOUT BEHAVIORAL DISTURBANCE Status: Chronic Plan: -pt has baseline dementia and previously had DNR but revoked at outside facility and intubated -palliative care on board to help discussions of goals of care, assistance greatly appreciated -pt currently chemical code only (6) HTN (hypertension) Code(s): I10 - ESSENTIAL (PRIMARY) HYPERTENSION Status: Chronic QualifierTitle: Hypertension type: essential hypertension Qualified Code( s): I10 - Essential (primary) hypertension Plan: -currently uncontrolled due to having to hold PO medications -will continue to monitor closely and introduce home medications when able (7) T2DM (type 2 diabetes mellitus) Status: Acute Plan: -continue home metformin -continue accuchecks and SSI - Plan Plan: disposition: Pt doing well and stable. No seizure activity. Will continue to monitor closely. Specialist recommendations greatly appreciated. Continue to monitor HR and transition back to PO medications as tolerated and allowed by speech therapy. Family to decide on goals of care moving forward. Pt stable for transfer out of CCU to telemetry. <Sharif Silva - Last Filed: 02/21/17 09:19> Attending Addendum - Attending Addendum I personally evaluated the patient and discussed the management with Dr. Silva I agree with the History, Examination, Assessment and Plan documented above with any addition or exceptions noted below- Patient awakens easily; A&Ox2; Passed bedside swallow this morning. Afebrile VSS 1) Acute respiratory failure- resolved; stable for transfer to floor, 2) UTI secondary to E. coli- change to po abx; 3) HTN- resume home meds; 4) Chornic A-fib- continue digoxin. <Leatha Duke - Last Filed: 02/21/17 11:23>
[2017-02-21] MEDS ORDERED: Pantoprazole 40 MG VIAL IVP SCH (09:00)
[2017-02-21] MEDS ORDERED: Digoxin 0.5 MG/2 ML AMP SLOW IVP SCH (09:00)
[2017-02-21] MEDS: Apixaban 5 MG TAB PO SCH ×3 (09:37→20:55)
[2017-02-21] MEDS: metFORMIN 500 MG TAB PO SCH ×3 (09:37→17:23)
[2017-02-21] MEDS: Valsartan 80 MG TAB PO SCH ×2 (09:38→10:26)
[2017-02-21] MEDS: Atorvastatin Calcium 10 MG TAB PO SCH ×2 (09:38→10:29)
[2017-02-21] MEDS: Carvedilol 25 MG TAB PO SCH ×3 (09:38→20:55)
[2017-02-21] MEDS: Multivit, Therapeutic 1 TAB PO SCH ×2 (09:38→10:29)
[2017-02-21] MEDS: levETIRAcetam In NaCl (Iso-Os) 1,000 MG in Premix Bag 1 BAG IVPB SCH ×4 (09:43→20:55)
[2017-02-21] MEDS: Sodium Chloride 0.45% 1,000 ML IV SCH (09:47)
--- NOTE | 2017-02-21 09:59 | PRG ---
DATE OF SERVICE: 02/21/2017 SERVICE: Pulmonary Medicine. INTERVAL HISTORY: The patient is doing great from a respiratory standpoint. She is breathing comfor tably on room air. Her mentation has dramatically improved over the weekend. She was successfully e xtubated. Otherwise, there has been no change to her condition. PHYSICAL EXAMINATION: VITAL SIGNS: Afebrile, pulse 110, blood pressure 162/93, respirations 25, saturation 98% on room air . GENERAL: Patient is awake, alert, in no apparent distress. LUNGS: Excellent air entry. There is no prolonged expiratory phase, wheezing, rhonchi or crackles. HEART: Normal rate, regular. ABDOMEN: Soft, nontender, nondistended. Bowel sounds positive. MUSCULOSKELETAL: No cyanosis or clubbing. No pitting in the bilateral lower extremities. NEUROLOGIC: Grossly nonfocal. LABORATORY DATA: WBC 10.9, hemoglobin 9.1, platelets 266,000. Chloride 112. Basic metabolic profil e is otherwise unremarkable/stable. Magnesium 2.1. Urine culture is growing E. coli, which is essen tially pansensitive. ASSESSMENT: 1. Respiratory failure, resolved. 2. Seizure, possible. 3. Metabolic encephalopathy. 4. Dementia, advanced. 5. Severe sepsis. 6. Urinary tract infection. PLAN: The patient is stable for transition out of the ICU to the floor. We will continue antibiotic directed at her urinary tract infection. Pulmonary will continue to follow up for 1 additional day.
[2017-02-21] MEDS ORDERED: cloNIDine 0.1 MG TAB PO PRN (12:03)
[2017-02-21] MEDS: Cefdinir 300 MG CAP PO SCH (20:55)
[2017-02-22 05:04] LABS: #Eosinphils 0.1 thou/uL (0.0-0.7); #Lymphocytes 0.8 thou/uL (1.20-3.40); #Monocytes 1.1 thou/uL (0.11-0.59); #Neutrophils 7.2 thou/uL (1.40-6.50); %Basophils 0.1 % (0.0-1.0); %Eosinophils 1.1 % (0.0-10.0); %Lymphocytes 8.8 % (21.0-51.0); %Monocytes 11.5 % (0.0-10.0); Hematocrit 31.1 % (36.0-47.0); Mean Platelet Volume 7.8 fL (7.4-10.4); Red Blood Cell (RBC) Count 3.27 mill/uL (4.20-5.40); White Blood Cell (WBC) Count 9.2 thou/uL (4.8-10.8)
[2017-02-22 05:14] LABS: Anion Gap 12 mmol/L (10-20); BUN (Urea Nitrogen) 21 mg/dL (9.8-20.1); Calc. Creatinine Clearance 46 mL/min (70-130); Calcium 8.8 mg/dL (7.8-10.44); Carbon Dioxide 20 mmol/L (23-31); Chloride 113 mmol/L (98-107); Estimated GFR-MDRD Greater than 90
[2017-02-22] MEDS: Sodium Chloride 0.45% 1,000 ML IV SCH ×3 (05:45→20:49)
--- NOTE | 2017-02-22 07:37 | EKG ---
Test Reason : Blood Pressure : / mmHG Vent. Rate : 076 BPM Atrial Rate : 059 BPM P-R Int : 000 ms QRS Dur : 134 ms QT Int : 420 ms P-R-T Axes : 000 268 084 degrees QTc Int : 472 ms Atrial fibrillation Right superior axis deviation Non-specific intra-ventricular conduction block Cannot rule out Septal infarct , age undetermined Abnormal ECG When compared with ECG of 17-FEB-2017 15:09, (Unconfirmed) No significant change was found Confirmed by MARISSA GONZALEZ, . SDeo (4) on 02/22/2017 7:37:17 AM Referred By: YUDITH Confirmed By:DR. Dangelo ANN MD
[2017-02-22] MEDS ORDERED: hydrALAZINE 20 MG/ML VIAL SLOW IVP PRN (07:45)
--- NOTE | 2017-02-22 09:11 | PDOC.FM ---
- Subjective Subjective: Pt seen asleep in bed in NAD. GUANACO overnight per nursing. Pt transferred from CCU to telemetry. Pt has been tolerating PO intake, no complaints this AM. - Objective MAR Reviewed: Yes Vital Signs & Weight: Vital Signs (12 hours) Temp Pulse Resp BP Pulse Ox 02/22/17 08:00 97.3 F L 83 18 155/96 H 93 L 02/22/17 07:08 88 20 93 L 02/22/17 04:00 97.4 F L 82 20 172/93 H 92 L 02/22/17 02:42 93 L 02/22/17 00:31 16 02/22/17 00:00 97.9 F 75 20 155/76 H 90 L Weight Admit Weight 47.7 kg Weight 48.172 kg Most Recent Monitor Data Heart Rate from ECG 85 NIBP 145/78 NIBP BP-Mean 95 Respiration from ECG 18 SpO2 93 I&O: 02/21/17 02/22/17 02/23/17 06:59 06:59 06:59 Intake Total 2889 2100 Output Total 776 375 Balance 2113 1725 Result Diagrams: 02/22/17 04:08 02/22/17 04:08 <Sharif Silva - Last Filed: 02/22/17 09:26> - Objective Vital Signs & Weight: Vital Signs (12 hours) Temp Pulse Resp BP BP Pulse Ox 02/22/17 10:15 83 02/22/17 10:14 83 155/96 H 02/22/17 08:00 97.3 F L 83 18 155/96 H 93 L 02/22/17 07:08 88 20 93 L 02/22/17 04:00 97.4 F L 82 20 172/93 H 92 L 02/22/17 02:42 93 L 02/22/17 00:31 16 02/22/17 00:00 97.9 F 75 20 155/76 H 90 L Weight Admit Weight 47.7 kg Weight 48.172 kg Most Recent Monitor Data Heart Rate from ECG 85 NIBP 145/78 NIBP BP-Mean 95 Respiration from ECG 18 SpO2 93 I&O: 02/21/17 02/22/17 02/23/17 06:59 06:59 06:59 Intake Total 2889 2100 Output Total 776 375 Balance 2113 1725 Result Diagrams: 02/22/17 04:08 02/22/17 04:08 <Leatha Duke - Last Filed: 02/22/17 11:04> Phys Exam - Physical Examination Constitutional: NAD HEENT: PERRLA Respiratory: no wheezing, clear to auscultation bilateral Cardiovascular: no significant murmur irregularly irregular Gastrointestinal: soft, non-tender Musculoskeletal: pulses present Neurological: moves all 4 limbs Psychiatric: normal affect Deviation from normal: A&Ox2, intermittently answers questions correctly <Sharif Silva - Last Filed: 02/22/17 09:26> Dx/Plan (1) Seizure Code(s): R56.9 - UNSPECIFIED CONVULSIONS Status: Acute Plan: -no hx of prior seizure d/o -pt has been kept on Keppra with no seizure activity -continue to monitor closely -pt passed swallow study on 02/21 and transitioned to oral diet -pt transitioned to PO keppra (2) E. coli urinary tract infection Code(s): N39.0 - URINARY TRACT INFECTION, SITE NOT SPECIFIED; B96.20 - UNSP ESCHERICHIA COLI THE CAUSE OF DISEASES CLASSD ELSWHR Status: Acute Plan: -urine cx shows E. coli sensitive to Rocephin, started 02/19 -afebrile for over 24 hrs -WBC downward trending -CXR shows no acute process -pt transitioned to oral cefdinir -will d/c torri (3) Afib Code(s): I48.91 - UNSPECIFIED ATRIAL FIBRILLATION Status: Acute QualifierTitle: Atrial fibrillation type: chronic Qualified Code(s): I48.2 - Chronic atrial fibrillation Plan: -chronic afib on home digoxin, coreg, and eliquis -currently rate controlled -pt transitioned back to home oral medications (4) Dementia Code(s): F03.90 - UNSPECIFIED DEMENTIA WITHOUT BEHAVIORAL DISTURBANCE Status: Chronic Plan: -pt has baseline dementia and previously had DNR but revoked at outside facility and intubated -palliative care on board to help discussions of goals of care, assistance greatly appreciated -pt currently chemical code only (5) HTN (hypertension) Code(s): I10 - ESSENTIAL (PRIMARY) HYPERTENSION Status: Chronic QualifierTitle: Hypertension type: essential hypertension Qualified Code( s): I10 - Essential (primary) hypertension Plan: -currently uncontrolled due to having to previously hold PO medications -will continue to monitor closely -home PO medications restarted with addition of amlodipine for better control -PRN hydralazine and clonidine also available (6) T2DM (type 2 diabetes mellitus) Status: Acute Plan: -continue home metformin -continue accuchecks and SSI - Plan Plan: dispo: Pt doing well and stable, continues to have no seizure activity. Specialist recommendations greatly appreciated. Pt tolerated transition to oral diet well yesterday. Medications have all been transitioned to PO. Will discuss pt's case with family today and attempt to formulate discharge planning as pt previously at [facility]. Continue to monitor closely. <Sharif Silva - Last Filed: 02/22/17 09:26> Attending Addendum - Attending Addendum I personally evaluated the patient and discussed the management with Dr. Silva I agree with the History, Examination, Assessment and Plan documented above with any addition or exceptions noted below- Patient sitting up in bed. Some coughing while sipping liquids. Afebrile VSS A/P: 1) Acute respiratory failure- resolved, 2) UTI- on po abx; continue for 7 day total, 3) Chronic A-fib- rate controlled; continue current meds, 4) D/C planning- pt has been in assisted living facility; case mgmt for return there versus SNF, 5) Swallowing- repeat speech therapy screen. <Leatha Duke - Last Filed: 02/22/17 11:04>
[2017-02-22] MEDS: Valsartan 80 MG TAB PO SCH (10:13)
[2017-02-22] MEDS: Atorvastatin Calcium 10 MG TAB PO SCH (10:13)
[2017-02-22] MEDS: levETIRAcetam 500 MG TAB PO SCH ×2 (10:13→20:48)
[2017-02-22] MEDS: Amlodipine 5 MG TAB PO SCH (10:14)
[2017-02-22] MEDS: Multivit, Therapeutic 1 TAB PO SCH (10:14)
[2017-02-22] MEDS: Cefdinir 300 MG CAP PO SCH ×2 (10:15→20:48)
[2017-02-22] MEDS: Digoxin 0.125 MG TAB PO SCH (10:15)
[2017-02-22] MEDS: Apixaban 5 MG TAB PO SCH ×2 (10:16→20:48)
[2017-02-22] MEDS: metFORMIN 500 MG TAB PO SCH ×2 (10:16→18:01)
[2017-02-22] MEDS: Carvedilol 25 MG TAB PO SCH ×2 (10:17→20:48)
[2017-02-22] MEDS: Pantoprazole 40 MG GRANULES PACKET PER TUBE SCH (10:17)
--- NOTE | 2017-02-22 12:47 | PRG ---
DATE OF SERVICE: 02/22/2017 SERVICE: Pulmonary Medicine. INTERVAL HISTORY: The patient is doing fine from a respiratory standpoint. Her sats are okay on 2 l iters nasal cannula. She cannot really provide any additional elements of the history because of her advanced cognitive impairment. She has a bolus of food in her mouth. She is just basically continu ously chewing on this thing and has yet to swallow it down. It does not look as though her tray is n ext to her. I am not quite certain how this occurred. I have requested that she spit it out because she cannot think to swallow it. PHYSICAL EXAMINATION: VITAL SIGNS: Afebrile, pulse 83, blood pressure 155/96, respirations 18, saturation 93% on room air. GENERAL: The patient is awake, alert, no apparent distress. LUNGS: Decent air entry. Rhonchi are present. No crackles or wheezing are appreciated. HEART: Normal rate, regular. ABDOMEN: Soft, nontender, nondistended, bowel sounds positive. MUSCULOSKELETAL: No cyanosis or clubbing. No pitting in the bilateral lower extremities. NEUROLOGIC: Grossly nonfocal. LABORATORY DATA: WBC 9.2, hemoglobin 9.8, platelets 238,000. Basic metabolic profile was essentiall y unremarkable. Chloride is 113,000 and up trending gently. Urinalysis is unremarkable. Urine cult ure, however, is growing pansensitive E. coli. ASSESSMENT: 1. Acute hypoxic respiratory failure, improving. 2. Seizure disorder. 3. Metabolic encephalopathy, resolved. 4. Dementia, advanced. 5. Severe sepsis. 6. Urinary tract infection. PLAN: The patient is at very high risk for repeat episodes of aspiration related disease. If she is truly at her baseline based on what the family is suggesting, I [facility]. PEG tube will not decrease her risk of aspiration moving forward. She has no further requirements for inpatient Pulmonary or Critical Care opinion. As such, we will sign off. Please call with additional questions or concerns moving forward.
[2017-02-22] MEDS ORDERED: Nystatin Cream 15 GM TUBE TOP SCH (21:00)
[2017-02-22] MEDS: Nystatin Cream 30 GM TUBE TOP SCH (23:05)
[2017-02-23 05:03] LABS: #Eosinphils 0.3 thou/uL (0.0-0.7); #Monocytes 0.9 thou/uL (0.11-0.59); #Neutrophils 6.4 thou/uL (1.40-6.50); %Basophils 0.1 % (0.0-1.0); %Eosinophils 3.6 % (0.0-10.0); %Lymphocytes 11.3 % (21.0-51.0); %Monocytes 10.1 % (0.0-10.0); Hematocrit 28.1 % (36.0-47.0); Mean Platelet Volume 7.6 fL (7.4-10.4); Red Blood Cell (RBC) Count 2.96 mill/uL (4.20-5.40); White Blood Cell (WBC) Count 8.5 thou/uL (4.8-10.8)
[2017-02-23 05:25] LABS: Anion Gap 11 mmol/L (10-20); BUN (Urea Nitrogen) 18 mg/dL (9.8-20.1); Calc. Creatinine Clearance 50 mL/min (70-130); Calcium 8.8 mg/dL (7.8-10.44); Carbon Dioxide 22 mmol/L (23-31); Chloride 112 mmol/L (98-107); Estimated GFR-MDRD Greater than 90
[2017-02-23 05:56] VITALS: BMI 17.1
[2017-02-23] MEDS: Valsartan 80 MG TAB PO SCH (08:42)
[2017-02-23] MEDS: Pantoprazole 40 MG GRANULES PACKET PER TUBE SCH (08:42)
[2017-02-23] MEDS: levETIRAcetam 500 MG TAB PO SCH ×2 (08:43→20:49)
[2017-02-23] MEDS: Digoxin 0.125 MG TAB PO SCH (08:43)
[2017-02-23] MEDS: metFORMIN 500 MG TAB PO SCH ×2 (08:43→17:08)
[2017-02-23] MEDS: Amlodipine 5 MG TAB PO SCH (08:43)
[2017-02-23] MEDS: Cefdinir 300 MG CAP PO SCH ×2 (08:43→20:49)
[2017-02-23] MEDS: Multivit, Therapeutic 1 TAB PO SCH (08:43)
[2017-02-23] MEDS: Carvedilol 25 MG TAB PO SCH ×2 (08:44→20:49)
[2017-02-23] MEDS: Apixaban 5 MG TAB PO SCH ×2 (08:44→20:49)
[2017-02-23] MEDS: Atorvastatin Calcium 10 MG TAB PO SCH (08:44)
--- NOTE | 2017-02-23 08:47 | PDOC.FM ---
- Subjective Subjective: Pt seen at bedside in NAD, no family at bedside. Pt had wild discontinued yesterday, however, had >300 cc residual, wild replaced. Pt still slightly confused but has no acute complaints. - Objective MAR Reviewed: Yes Vital Signs & Weight: Vital Signs (12 hours) Temp Pulse Resp BP BP Pulse Ox 02/23/17 08:43 78 146/83 H 02/23/17 07:21 97.7 F 78 18 146/83 H 95 02/23/17 06:53 75 18 98 02/23/17 04:00 97.5 F L 80 20 168/80 H 94 L 02/23/17 00:37 85 22 H 94 L 02/23/17 00:00 97.8 F 86 20 152/76 H 93 L Weight Admit Weight 47.7 kg Weight 49.623 kg Most Recent Monitor Data Heart Rate from ECG 85 NIBP 145/78 NIBP BP-Mean 95 Respiration from ECG 18 SpO2 93 I&O: 02/22/17 02/23/17 02/24/17 06:59 06:59 06:59 Intake Total 2100 1260 Output Total 375 850 Balance 1725 410 Result Diagrams: 02/23/17 04:00 02/23/17 04:00 <Sharif Silva - Last Filed: 02/23/17 08:46> - Objective Vital Signs & Weight: Vital Signs (12 hours) Temp Pulse Resp BP BP Pulse Ox 02/23/17 08:43 78 146/83 H 02/23/17 07:21 97.7 F 78 18 146/83 H 95 02/23/17 06:53 75 18 98 02/23/17 04:00 97.5 F L 80 20 168/80 H 94 L 02/23/17 00:37 85 22 H 94 L 02/23/17 00:00 97.8 F 86 20 152/76 H 93 L Weight Admit Weight 47.7 kg Weight 49.623 kg Most Recent Monitor Data Heart Rate from ECG 85 NIBP 145/78 NIBP BP-Mean 95 Respiration from ECG 18 SpO2 93 I&O: 02/22/17 02/23/17 02/24/17 06:59 06:59 06:59 Intake Total 2100 1260 Output Total 375 850 Balance 1725 410 Result Diagrams: 02/23/17 04:00 02/23/17 04:00 <Leatha Duke - Last Filed: 02/23/17 11:16> Phys Exam - Physical Examination Constitutional: NAD HEENT: PERRLA Respiratory: no wheezing, clear to auscultation bilateral Cardiovascular: no significant murmur irregularly irregular Gastrointestinal: soft, non-tender Musculoskeletal: pulses present Neurological: moves all 4 limbs Psychiatric: normal affect Deviation from normal: A&Ox2, intermittently answers questions incorrectly <Sharif Silva - Last Filed: 02/23/17 08:46> Dx/Plan (1) Seizure Code(s): R56.9 - UNSPECIFIED CONVULSIONS Status: Acute Plan: -no hx of prior seizure d/o -pt has been kept on Keppra with no seizure activity -continue to monitor closely -pt passed swallow study on 02/21 and transitioned to oral diet -pt transitioned to PO keppra (2) E. coli urinary tract infection Code(s): N39.0 - URINARY TRACT INFECTION, SITE NOT SPECIFIED; B96.20 - UNSP ESCHERICHIA COLI THE CAUSE OF DISEASES CLASSD ELSWHR Status: Acute Plan: -urine cx shows E. coli sensitive to Rocephin, started 02/19 -afebrile for over 24 hrs -WBC downward trending -CXR shows no acute process -pt transitioned to oral cefdinir -will attempt to d/c wild but consider indwelling as pt unable to care for herself (3) Afib Code(s): I48.91 - UNSPECIFIED ATRIAL FIBRILLATION Status: Acute QualifierTitle: Atrial fibrillation type: chronic Qualified Code(s): I48.2 - Chronic atrial fibrillation Plan: -chronic afib on home digoxin, coreg, and eliquis -currently rate controlled -pt transitioned back to home oral medications (4) Dementia Code(s): F03.90 - UNSPECIFIED DEMENTIA WITHOUT BEHAVIORAL DISTURBANCE Status: Chronic Plan: -pt has baseline dementia and previously had DNR but revoked at outside facility and intubated -palliative care on board to help discussions of goals of care, assistance greatly appreciated -pt currently chemical code only (5) HTN (hypertension) Code(s): I10 - ESSENTIAL (PRIMARY) HYPERTENSION Status: Chronic QualifierTitle: Hypertension type: essential hypertension Qualified Code( s): I10 - Essential (primary) hypertension Plan: -currently uncontrolled due to having to previously hold PO medications -will continue to monitor closely -home PO medications restarted with addition of amlodipine for better control -PRN hydralazine and clonidine also available (6) T2DM (type 2 diabetes mellitus) Status: Acute Plan: -continue home metformin -continue accuchecks and SSI - Plan Plan: dispo: Pt stable and doing well. Case management assistance greatly appreciated. Pending discussions with family, pt stable for discharge pending placement and ability to provide total care. Continue to monitor closely. <Sharif Silva - Last Filed: 02/23/17 08:46> Attending Addendum - Attending Addendum I personally evaluated the patient and discussed the management with Dr. Silva I agree with the History, Examination, Assessment and Plan documented above with any addition or exceptions noted below- Patient without complaints. Afebrile VSS. A/P: 1) Seizure d/o- on keppra; no further seizures, 2) Acute respiratory failure secondary to seizure- resolved, 3) UTI- has completed po antibiotic course, 4) Urinary retention- had post-void residual of 300 mL yesterday after wild d/c'd; catheter replaced, 5) Disposition- awaiting discussion with family regarding return to facility. <Leatha Duke - Last Filed: 02/23/17 11:16>
[2017-02-23] MEDS: Sodium Chloride 0.45% 1,000 ML IV SCH (11:00)
[2017-02-23] MEDS: Nystatin Cream 30 GM TUBE TOP SCH ×2 (11:30→20:50)
[2017-02-24] MEDS: Sodium Chloride 0.45% 1,000 ML IV SCH ×2 (05:31→09:00)
--- NOTE | 2017-02-24 06:58 | PDOC.FM ---
- Subjective Subjective: Pt seen at bedside in NAD, no family at bedside. GUANACO overnight. No complaints or concerns at this time. - Objective MAR Reviewed: Yes Vital Signs & Weight: Vital Signs (12 hours) Temp Pulse Resp BP Pulse Ox 02/24/17 04:00 97.9 F 64 18 138/70 92 L 02/24/17 00:29 63 16 97 02/23/17 19:20 98.6 F 87 16 160/76 H 93 L Weight Admit Weight 47.7 kg Weight 49.623 kg Most Recent Monitor Data Heart Rate from ECG 85 NIBP 145/78 NIBP BP-Mean 95 Respiration from ECG 18 SpO2 93 I&O: 02/22/17 02/23/17 02/24/17 06:59 06:59 06:59 Intake Total 2100 1260 780 Output Total 464 139 9119 Balance 1725 410 -220 Result Diagrams: 02/23/17 04:00 02/23/17 04:00 <Sharif Silva - Last Filed: 02/24/17 06:58> - Objective Vital Signs & Weight: Vital Signs (12 hours) Temp Pulse Resp BP BP Pulse Ox 02/24/17 08:57 72 02/24/17 08:55 72 172/77 H 02/24/17 07:15 72 16 100 02/24/17 07:10 98.1 F 72 16 172/77 H 97 02/24/17 04:00 97.9 F 64 18 138/70 92 L 02/24/17 00:29 63 16 97 Weight Admit Weight 47.7 kg Weight 49.623 kg Most Recent Monitor Data Heart Rate from ECG 85 NIBP 145/78 NIBP BP-Mean 95 Respiration from ECG 18 SpO2 93 I&O: 02/23/17 02/24/17 02/25/17 06:59 06:59 06:59 Intake Total 1260 780 Output Total 850 1000 Balance 410 -220 Result Diagrams: 02/23/17 04:00 02/23/17 04:00 <Ani Jean Baptiste - Last Filed: 02/24/17 11:05> Phys Exam - Physical Examination Constitutional: NAD HEENT: PERRLA Respiratory: no wheezing, clear to auscultation bilateral Cardiovascular: no significant murmur irregularly irregular Gastrointestinal: soft, non-tender Musculoskeletal: pulses present Neurological: moves all 4 limbs Psychiatric: normal affect Deviation from normal: A&Ox2 <Sharif Silva - Last Filed: 02/24/17 06:58> Dx/Plan (1) Seizure Code(s): R56.9 - UNSPECIFIED CONVULSIONS Status: Acute Plan: -no hx of prior seizure d/o -pt has been kept on Keppra with no seizure activity -continue to monitor closely -pt passed swallow study on 02/21 and transitioned to oral diet -pt transitioned to PO keppra (2) E. coli urinary tract infection Code(s): N39.0 - URINARY TRACT INFECTION, SITE NOT SPECIFIED; B96.20 - UNSP ESCHERICHIA COLI THE CAUSE OF DISEASES CLASSD ELSWHR Status: Acute Plan: -urine cx shows E. coli sensitive to Rocephin, started 02/19 -continues to be afebrile with no WBC -CXR showed no acute process -pt transitioned to oral cefdinir and completed 5 day course -wild d/c'd but will monitor residuals closely and replace wild if needed (3) Afib Code(s): I48.91 - UNSPECIFIED ATRIAL FIBRILLATION Status: Acute QualifierTitle: Atrial fibrillation type: chronic Qualified Code(s): I48.2 - Chronic atrial fibrillation Plan: -chronic afib on home digoxin, coreg, and eliquis -currently rate controlled -pt transitioned back to home oral medications (4) Dementia Code(s): F03.90 - UNSPECIFIED DEMENTIA WITHOUT BEHAVIORAL DISTURBANCE Status: Chronic Plan: -pt has baseline dementia and previously had DNR but revoked at outside facility and intubated -palliative care on board to help discussions of goals of care, assistance greatly appreciated -pt currently chemical code only (5) HTN (hypertension) Code(s): I10 - ESSENTIAL (PRIMARY) HYPERTENSION Status: Chronic QualifierTitle: Hypertension type: essential hypertension Qualified Code( s): I10 - Essential (primary) hypertension Plan: -currently uncontrolled due to having to previously hold PO medications -will continue to monitor closely -home PO medications restarted with addition of amlodipine for better control -PRN hydralazine and clonidine also available (6) T2DM (type 2 diabetes mellitus) Status: Acute Plan: -continue home metformin -continue accuchecks and SSI - Plan Plan: dispo: Pt stable and doing well. Case management assistance greatly appreciated. Pending discussions with family, pt stable for discharge pending placement and ability to provide total care. Continue to monitor closely. <Sharif Silva - Last Filed: 02/24/17 06:58> Attending Addendum - Attending Addendum I personally evaluated the patient and discussed the management with Dr. Silva. I agree with the History, Examination, Assessment and Plan documented above with any addition or exceptions noted below. The patient is doing well. Working with case management on placement as patient is stable. <Ani Jean Baptiste - Last Filed: 02/24/17 11:05>
[2017-02-24] MEDS: Amlodipine 5 MG TAB PO SCH (08:55)
[2017-02-24] MEDS: metFORMIN 500 MG TAB PO SCH ×2 (08:55→18:10)
[2017-02-24] MEDS: Atorvastatin Calcium 10 MG TAB PO SCH (08:56)
[2017-02-24] MEDS: Multivit, Therapeutic 1 TAB PO SCH (08:56)
[2017-02-24] MEDS: Carvedilol 25 MG TAB PO SCH ×2 (08:57→20:48)
[2017-02-24] MEDS: Pantoprazole 40 MG GRANULES PACKET PER TUBE SCH (08:57)
[2017-02-24] MEDS: Digoxin 0.125 MG TAB PO SCH (08:57)
[2017-02-24] MEDS: levETIRAcetam 500 MG TAB PO SCH ×2 (08:57→20:48)
[2017-02-24] MEDS: Apixaban 5 MG TAB PO SCH ×2 (08:58→20:48)
[2017-02-24] MEDS: Valsartan 80 MG TAB PO SCH (08:59)
[2017-02-24] MEDS: Nystatin Cream 30 GM TUBE TOP SCH (20:49)
[2017-02-25] MEDS: Sodium Chloride 0.45% 1,000 ML IV SCH (05:55)
--- NOTE | 2017-02-25 06:52 | PDOC.FM ---
- Subjective Subjective: Pt seen at bedside in NAD, no family at bedside. GUANACO overnight. No complaints or concerns at this time. - Objective MAR Reviewed: Yes Vital Signs & Weight: Vital Signs (12 hours) Temp Pulse Resp BP Pulse Ox 02/25/17 04:00 97.5 F L 67 18 159/74 H 02/25/17 01:01 95 02/25/17 00:22 67 16 95 02/24/17 19:35 98.4 F 73 20 167/79 H 98 Weight Admit Weight 47.7 kg Weight 49.623 kg Most Recent Monitor Data Heart Rate from ECG 85 NIBP 145/78 NIBP BP-Mean 95 Respiration from ECG 18 SpO2 93 I&O: 02/23/17 02/24/17 02/25/17 06:59 06:59 06:59 Intake Total 1260 780 Output Total 850 1000 Balance 410 -220 Result Diagrams: 02/23/17 04:00 02/23/17 04:00 <Sharif Silva - Last Filed: 02/25/17 06:50> - Objective Vital Signs & Weight: Vital Signs (12 hours) Temp Pulse Resp BP BP Pulse Ox 02/25/17 13:57 71 16 02/25/17 12:00 98.2 F 77 18 161/76 H 93 L 02/25/17 09:53 84 185/90 H 02/25/17 08:20 97.5 F L 84 19 96 02/25/17 08:00 97.5 F L 84 20 185/90 H 96 02/25/17 07:36 92 L 02/25/17 07:33 69 18 92 L Weight Admit Weight 47.7 kg Weight 49.623 kg Most Recent Monitor Data Heart Rate from ECG 85 NIBP 145/78 NIBP BP-Mean 95 Respiration from ECG 18 SpO2 93 I&O: 02/24/17 02/25/17 02/26/17 06:59 06:59 06:59 Intake Total 780 Output Total 1000 Balance -220 Result Diagrams: 02/23/17 04:00 02/23/17 04:00 <Ani Jean Baptiste - Last Filed: 02/25/17 16:21> Phys Exam - Physical Examination Constitutional: NAD HEENT: PERRLA Respiratory: no wheezing, no rales, clear to auscultation bilateral Cardiovascular: no significant murmur Gastrointestinal: soft, non-tender Musculoskeletal: pulses present Neurological: moves all 4 limbs Psychiatric: normal affect Deviation from normal: A&Ox2 <Sharif Silva - Last Filed: 02/25/17 06:50> Dx/Plan (1) Seizure Code(s): R56.9 - UNSPECIFIED CONVULSIONS Status: Acute Plan: -no hx of prior seizure d/o -pt has been kept on Keppra with no seizure activity -continue to monitor closely -pt passed swallow study on 02/21 and transitioned to oral diet -pt transitioned to PO keppra (2) E. coli urinary tract infection Code(s): N39.0 - URINARY TRACT INFECTION, SITE NOT SPECIFIED; B96.20 - UNSP ESCHERICHIA COLI THE CAUSE OF DISEASES CLASSD ELSWHR Status: Acute Plan: -urine cx shows E. coli sensitive to Rocephin, started 02/19 -continues to be afebrile with no WBC -CXR showed no acute process -pt transitioned to oral cefdinir and completed 5 day course -wild d/c'd but will monitor residuals closely and replace wild if needed (3) Afib Code(s): I48.91 - UNSPECIFIED ATRIAL FIBRILLATION Status: Acute QualifierTitle: Atrial fibrillation type: chronic Qualified Code(s): I48.2 - Chronic atrial fibrillation Plan: -chronic afib on home digoxin, coreg, and eliquis -currently rate controlled -pt transitioned back to home oral medications (4) Dementia Code(s): F03.90 - UNSPECIFIED DEMENTIA WITHOUT BEHAVIORAL DISTURBANCE Status: Chronic Plan: -pt has baseline dementia and previously had DNR but revoked at outside facility and intubated -palliative care on board to help discussions of goals of care, assistance greatly appreciated -pt currently chemical code only (5) HTN (hypertension) Code(s): I10 - ESSENTIAL (PRIMARY) HYPERTENSION Status: Chronic QualifierTitle: Hypertension type: essential hypertension Qualified Code( s): I10 - Essential (primary) hypertension Plan: -currently uncontrolled due to having to previously hold PO medications -will continue to monitor closely -home PO medications restarted with addition of amlodipine for better control -PRN hydralazine and clonidine also available (6) T2DM (type 2 diabetes mellitus) Status: Acute Plan: -continue home metformin -continue accuchecks and SSI - Plan Plan: dispo: Pt stable. Pt has been approved to return to assisted living with total care. Discharge today. <Sharif Silva - Last Filed: 02/25/17 06:50> Attending Addendum - Attending Addendum I personally evaluated the patient and discussed the management with Dr. Silva. I agree with the History, Examination, Assessment and Plan documented above with any addition or exceptions noted below. The patient has been doing well. She is at baseline and will be discharged. <Ani Jean Baptiste - Last Filed: 02/25/17 16:21>
[2017-02-25] MEDS: Nystatin Cream 30 GM TUBE TOP SCH (09:51)
[2017-02-25] MEDS: levETIRAcetam 500 MG TAB PO SCH (09:51)
[2017-02-25] MEDS: Apixaban 5 MG TAB PO SCH (09:52)
[2017-02-25] MEDS: Carvedilol 25 MG TAB PO SCH (09:52)
[2017-02-25] MEDS: Digoxin 0.125 MG TAB PO SCH (09:53)
[2017-02-25] MEDS: Atorvastatin Calcium 10 MG TAB PO SCH (09:53)
[2017-02-25] MEDS: Amlodipine 5 MG TAB PO SCH (09:53)
[2017-02-25] MEDS: Multivit, Therapeutic 1 TAB PO SCH (09:53)
[2017-02-25] MEDS: metFORMIN 500 MG TAB PO SCH (09:54)
[2017-02-25] MEDS: Pantoprazole 40 MG GRANULES PACKET PER TUBE SCH (09:54)
[2017-02-25] MEDS: Valsartan 80 MG TAB PO SCH (09:54)
--- NOTE | 2017-02-25 10:58 | DIS-2 ---
DATE OF ADMISSION: 02/18/2016 DATE OF DISCHARGE: 02/25/2017 RESIDENT: Sharif Silva M.D. ADMITTING ATTENDING: Dr. Cheryl Ramirez DISCHARGE ATTENDING: Dr. Ani Jean Baptiste CONSULTATIONS: 1. Pulmonology, Dr. Jose Rodriguez. 2. Palliative Care. 3. Speech Therapy. PROCEDURES: 1. Abdominal x-ray performed 02/17/2017 showed NG tube in good radiographic position. 2. MRI brain performed 02/18/2017 showed no acute territorial infarction and chronic ischemic diseas e. 3. Chest x-ray performed on 02/19/2017 showed increased density in the right base with concern for a telectasis. PRIMARY DIAGNOSES: 1. New onset seizure disorder thought to be secondary to Escherichia coli urinary tract infection. 2. Escherichia coli urinary tract infection. 3. Chronic atrial fibrillation. 4. Senile dementia. 5. Type 2 diabetes mellitus. 6. Hypertension. 7. Hyperlipidemia. 8. History of coronary artery disease, status post coronary artery bypass graft. 9. Hypothyroidism. 10. Acute hypoxic respiratory failure, status post seizure, resolved. 11. Hyperkalemia, resolved. 12. Dysphagia, resolved. DISCHARGE MEDICATIONS: 1. Keppra 1000 mg p.o. b.i.d. 2. Amlodipine 5 mg p.o. daily. 3. Digoxin 0.125 mg p.o. daily. 4. Valsartan 320 mg p.o. daily. 5. Potassium chloride 20 mEq p.o. b.i.d. 6. Metformin 500 mg p.o. b.i.d. with meals. 7. Apixaban 2.5 mg p.o. b.i.d. 8. Atorvastatin 10 mg p.o. at bedtime. 9. Omeprazole 40 mg p.o. daily. 10. Carvedilol 25 mg p.o. b.i.d. 11. Vitamin D3 1000 units p.o. daily. 12. Multivitamin p.o. daily. 13. Clonidine 0.1 mg p.o. p.r.n. HISTORY OF PRESENT ILLNESS AND HOSPITAL COURSE: The patient is a very pleasant 87-year-old female who initially presented as a transfer from an outside facility. The patient was reportedly f ound to be seizing and had an out of hospital DNR revoked and was subsequently intubated for airway p rotection. The patient was loaded and started on antiepileptic medication and had no recurrence of s eizures. This was therefore thought to be secondary to infectious cause including her UTI as describ ed above. The patient was initially admitted to the CCU and eventually weaned off of sedation and ex tubated successfully. The patient was then evaluated by Speech Therapy who continuously worked with the patient and eventually passed her for being safe for a pureed diet. The patient was previously a t a [facility] assisted living facility. After discussions with the facility it was thought to be ret urned to her baseline functional status. The patient slowly had her home oral medications restarted and required them to be crushed into her pureed diet. The patient was stable for discharge; however, there was difficulty setting up skilled transportation with the holiday season; however, the patient 's hospital course was otherwise uncomplicated. DISPOSITION: Guarded. DISCHARGE INSTRUCTIONS: 1. Location, [facility]. 2. Activity: As tolerated. 3. Diet: Heart healthy, pureed. 4. Followup: The patient was instructed to follow up with her primary care physician at her assiste d living facility. The patient also had her DNR status reinstated and was made a chemical code by he r daughter who is her power of attorney at law.
[2017-02-25 12:06] VITALS: BP 161/76; TEMP 98.2
== END 2017-02-25 14:20 | DRG 100 ==
LOC: ERS 14:59 → CCU 15:05 → 2NO 02-21 13:57
PROVIDERS: ADMIT Student in an Organized Health Care Education/Training Program; ATTEND Student in an Organized Health Care Education/Training Program
PROC: 5A1945Z Respiratory Ventilation, 24-96 Consecutive Hours (ICD-10-PCS; principal; 2017-02-17)
PROC: 02HV33Z Insertion of Infusion Device into Superior Vena Cava, Percutaneous Approach (ICD-10-PCS; 2017-02-17)
DX: R56.9 Unspecified convulsions (principal); J96.01 Acute respiratory failure with hypoxia; G93.41 Metabolic encephalopathy; J90 Pleural effusion, not elsewhere classified; R13.10 Dysphagia, unspecified; N39.0 Urinary tract infection, site not specified; I48.1 Persistent atrial fibrillation; F03.90 Unspecified dementia, unspecified severity, without behavioral disturbance, psychotic disturbance, mood disturbance, and anxiety; G40.909 Epilepsy, unspecified, not intractable, without status epilepticus; E87.5 Hyperkalemia; I10 Essential (primary) hypertension; E11.9 Type 2 diabetes mellitus without complications; D64.9 Anemia, unspecified; E03.9 Hypothyroidism, unspecified; K21.9 Gastro-esophageal reflux disease without esophagitis; E78.5 Hyperlipidemia, unspecified; I25.10 Atherosclerotic heart disease of native coronary artery without angina pectoris; Z95.1 Presence of aortocoronary bypass graft; Z86.73 Personal history of transient ischemic attack (TIA), and cerebral infarction without residual deficits; E73.9 Lactose intolerance, unspecified; Z66 Do not resuscitate; B96.20 Unspecified Escherichia coli [E. coli] as the cause of diseases classified elsewhere; Z51.5 Encounter for palliative care
CPT/HCPCS: 36415; 36416; 36556; 51702; 70553; 71010; 74000; 80048; 81003; 82553; 82805; 83735; 84100; 84443; 84484; 85025; 87077; 87086; 87186; 93005; 93010; 94002; 94003; 94640; A4216; C9113; G8996-GN-CK; G8996-GN-CL; G8996-GN-CM; G8997-GN-CJ; G8997-GN-CK; J0171; J0282; J0461; J0696; J1160; J1953; J2270; J2704; J3370; J3475; J3480; J7050; J7620